=== PATIENT | female | born 1965 | race Two or more races ===

== ENCOUNTER 2024-05-08 12:59 | Emergency (ER) | payer MEDICAID, SELFPAY ==
[2024-05-08 13:01] VITALS: BMI 34.0
[2024-05-08 13:35] VITALS: BP 129/84; PULSE 81; RESP 20; TEMP 36.8; O2SAT 95
--- NOTE | 2024-05-08 13:40 | XR_ITS ---
Examination: Tibia-Fibula, right , 2 views Technique: Tibia-fibula AP lateral 2 views Date and time of exam: May 08, 1999 2513.9 hours Indications: Injury to the lower leg today, lower leg pain. Findings: No acute fracture No dislocation No foreign body Impression: No acute fracture
--- NOTE | 2024-05-08 13:40 | XR_ITS ---
Examination: Knee, right , 3 views Technique: Knee AP, lateral, oblique 3 views Date and time of exam: May 08, 2024 1351 hrs. Indications: Injury to the knee today, knee pain. Findings: Mild narrowing medial joint space No fracture or dislocation Small knee effusion Impression: No fracture or dislocation
--- NOTE | 2024-05-08 14:58 | PD.EDLOWEX ---
Lower Extremity Injury RME/HPI General Chief Complaint: Extremity Injury, Lower Stated Complaint: FALL, RIGHT KNEE PAIN Time Seen by Provider: 05/08/24 13:40 Arrival date/time: 05/08/24 12:59 58-year-old female presents emergency department complaints of trip and fall patient reports right knee pain there are no other associated symptoms or aggravating factors no other modifying factors, patient denies taking medication before coming to ER today Limitations: no limitations Related Data Home Medications ?Medication ?Instructions ?Recorded ?Confirmed telmisartan 80 mg tablet 80 mg PO QDAY 06/18/22 06/18/22 Previous Rx's ?Medication ?Instructions ?Recorded ibuprofen 800 mg tablet (IBU) 800 mg PO Q8H #20 tabs 10/26/23 bacitracin 500 unit/gram topical 1 applic topical TID 7 days #28 05/08/24 ointment grams ibuprofen 800 mg tablet 800 mg PO TID PRN pain #30 tabs 05/08/24 Allergies Allergy/AdvReac Type Severity Reaction Status Date / Time codeine Allergy Mild NAUSEA, Verified 05/08/24 13:01 VOMITTING, STIFFNESS TO MOUTH, DIFICULTY SPAEKING Review of Systems Review of Systems Systems Reviewed: All systems reviewed, normal except as documented Constitutional Constitutional: Reports system reviewed and no additional complaints, except as documented, Denies fever(s) and Denies headache(s) Eyes Eyes: Reports system reviewed and no additional complaints, except as documented and Denies blurry vision ENT Ears, Nose, Mouth, and Throat: Reports system reviewed and no additional complaints, except as documented, Denies headache(s), Denies nasal congestion, Denies nasal discharge and Denies neck pain Cardiovascular Cardiovascular: Reports system reviewed and no additional complaints, except as documented, Denies chest pain and Denies dyspnea Respiratory Respiratory: Reports system reviewed and no additional complaints, except as documented, Denies chest congestion, Denies cough and Denies dyspnea Gastrointestinal Gastrointestinal: Reports system reviewed and no additional complaints, except as documented and Denies abdominal pain Musculoskeletal Musculoskeletal: Reports system reviewed and no additional complaints, except as documented, Denies deformity, Reports joint swelling, Denies neck pain, Reports stiffness and Denies tingling Integumentary/Breasts Skin/Breast: Reports system reviewed and no additional complaints, except as documented and Denies rash Neurologic Neurologic: Reports system reviewed and no additional complaints, except as documented, Reports as per HPI, Denies headache(s) and Denies tingling Past Medical History Past Medical History NEUROLOGIC: Negative Neurological Disorders or Seizures CARDIAC: Positive Cardiac Disorders and Hypertension; Negative Congestive Heart Failure RESPIRATORY: Negative Chronic Obstructive Pulmonary Disease (COPD) GASTROINTESTINAL: Negative Gastrointestinal Disorders GENITOURINARY: Negative Genitourinary Disorders or Renal Disease REPRODUCTIVE: Negative Pelvic Inflammatory Disease MUSCULOSKELETAL: Negative Musculoskeletal Disorders ENDOCRINE: Negative Endocrine Disorders, Diabetes Mellitus Type 1 or Diabetes Mellitus Type 2 HEMATOLOGIC: Negative Blood Disorders OTHER HISTORY: Negative Autoimmune Disease, Blood Transfusions or Anesthesia Reactions Family History FAMILY HISTORY: Negative Family Cardiac Disorders, Family Cancer, Family Surgery or Family Anesthesia Reaction Surgical History SURGICAL: Positive Section (x2) Social History SMOKING STATUS: Never smoker ED Exam General Limitations: Present no limitations General appearance: Present alert and in no apparent distress Head Head exam: Present atraumatic, normocephalic and normal inspection Eye Eye exam: Present normal appearance, PERRL and EOMI ENT ENT exam: Present normal exam, normal oropharynx and mucous membranes moist Neck Neck exam: Present normal inspection, full ROM and trachea midline Chest Chest inspection: Present normal inspection and symmetric chest wall rise Respiratory Respiratory exam: Present normal lung sounds bilaterally Cardiovascular Cardiovascular exam: Present regular rate, normal rhythm and normal heart sounds Abdominal Exam Abdominal exam: Present soft and normal bowel sounds Extremities Exam Extremities exam: Present full ROM and tenderness (Right knee pain) Back Exam Back exam: Present normal inspection and full ROM Neurological Exam Neurological exam: Present alert, oriented X3 and CN II-XII intact Psychiatric Psychiatric exam: Present normal affect and normal mood Skin Skin exam: Present warm, dry and other (Abrasion right knee) Course Quality Measures none Orders Category Date Time Status XR knee RT 3V Stat Exams 05/08/24 13:40 Completed XR tibia fibula RT 2V Stat Exams 05/08/24 13:40 Completed Vital Signs Vital signs: Vital Signs Temperature 98.3 F 05/08/24 13:35 Pulse Rate 81 05/08/24 13:35 Respiratory Rate 20 05/08/24 13:35 Blood Pressure 129/84 05/08/24 13:35 Pulse Oximetry (%) 95 05/08/24 13:35 Oxygen Delivery Method Room Air 05/08/24 13:35 O2 saturation 95% room air within normal limits Extremity Injury, Lower MDM Narrative MDM Narrative:: 58-year-old female presents emergency department complaints of trip and fall patient reports right knee pain there are no other associated symptoms or aggravating factors no other modifying factors, patient denies taking medication before coming to ER today On exam patient is tenderness and swelling to the right knee Patient has abrasion to the right knee Imaging of the right knee and tib-fib obtained no acute fracture dislocation noted Patient placed in Aba wrap given crutches Patient discharged home in no distress to follow-up with primary care doctor in the next 24 to 48 hours and for any worsening symptoms to return to the ER immediately Patient data External records reviewed:: [facility] previous records Clinical information provided by:: patient Social determinants that could affect healthcare access:: none Patient has the following chronic illnesses:: See history How is presenting disease/condition affected by chronic disease/condition?: uneffected by Evaluation data The following diagnostics were reviewed and interpreted by me:: radiology exam(s) Lab and/or radiology exams considered but not ordered:: Radiology obtain Interpretation Summary: Reviewed by me Medications / Prescriptions Medications or Prescriptions considered but not ordered:: Given Medication administrations:: Given Consultations Consultation(s) initiated? (list below): No Diagnosis Extremity Injury, Lower Differential Diagnosis: acute internal derangement of knee Most likely diagnosis given after review of the tests above:: Knee sprain Admission Indicated Admission indicated?: not indicated Admission Request Was there a request for admission?: No Disposition Plan Disposition Plan: Discharge Discharge Attestation Discharge Attestation: The patient and all family members were given an opportunity to ask questions and understood the discharge instructions. Discharge instructions specifically effects, indications for sooner follow up or return to the emergency department, and the expected course of current diagnosis. Patient condition: Stable Discharge Plan Plan Patient Disposition: HOME (Self Care) Disposition Comment: Stable Prescriptions/Referrals Prescriptions/Med Rec: New bacitracin 500 unit/gram ointment 1 applic topical TID 7 Days Qty: 28 0RF ibuprofen 800 mg tablet 800 mg PO TID PRN (Reason: pain) Qty: 30 0RF No Action telmisartan 80 mg Tablet 80 mg PO QDAY ibuprofen [IBU] 800 mg tablet 800 mg PO Q8H Qty: 20 0RF Referrals: Vira Infante PA-C [Primary Care Provider] - In 1 week Problem List Clinical Impression: Right knee sprain, Abrasion of knee, right Patient/Caregiver Discharge Instructions Additional Instructions: Please follow up with your primary care doctor in the next 24-48hrs for any worsening symptoms return here immediately Print Language: Lao Stand Alone Forms: Saskia Award Info., Patient Portal Info Letter PA/PRICING STRATEGIST Supervising Physician PA/PRICING STRATEGIST Supervising Physician: Dr Clark
== END 2024-05-08 15:15 | disposition home or self-care (01) ==
PROVIDERS: Emergency Provider Emergency Medicine; PCP Physician Assistant
DX: S83.91XA Sprain of unspecified site of right knee, initial encounter (principal); S80.211A Abrasion, right knee, initial encounter; W01.0XXA Fall on same level from slipping, tripping and stumbling without subsequent striking against object, initial encounter
CPT/HCPCS: 73562; 73590; 99283